=== PATIENT | female | born 1960 | race Caucasian/White ===

== ENCOUNTER 2018-03-04 14:44 | Emergency (ER) | payer MEDICARE, OTHER ==
[2018-03-04] MEDS: HYDROmorphONE 2 MG/ML SYG IM (15:39)
[2018-03-04 16:00] LABS: HEMATOCRIT 37.4 % (37.0-47.0); HEMOGLOBIN 12.2 g/dl (12.0-16.0); MEAN CORPUSCULAR HEMOGLOBIN 30.3 pg (29.0-33.0); MEAN CORPUSCULAR HGB CONC 32.6 g/dl (32.0-37.0); MEAN CORPUSCULAR VOLUME 92.8 fl (82.0-101.0); MEAN PLATELET VOLUME 9.1 fl (7.4-10.4); PLATELET COUNT 282 10^3/UL (140-415); RED BLOOD COUNT 4.03 10^6/ul (4.20-5.40); RED CELL DISTRIBUTION WIDTH 13.1 % (11.5-14.5)
[2018-03-04 16:00] LABS: WHITE BLOOD COUNT 6.2 10^3/ul (4.8-10.8)
[2018-03-04 16:04] LABS: ADD MAN DIFF? YES
[2018-03-04] MEDS: SOD CHLORIDE 0.9% 1,000 ML IV (16:08)
[2018-03-04 16:27] LABS: ANION GAP 7 (5-13); BLOOD UREA NITROGEN 10 mg/dl (7-20); CALCIUM 9.1 mg/dl (8.4-10.2); CARBON DIOXIDE 25 mmol/L (21-31); CHLORIDE 109 mmol/L (97-110); CREATININE 0.61 mg/dl (0.44-1.00); Estimated GFR > 60 mL/min (>60); GLUCOSE 82 mg/dl (70-220); POTASSIUM 4.1 mmol/L (3.5-5.1); SODIUM 141 mmol/L (135-144)
[2018-03-04 17:39] LABS: ANISOCYTOSIS 1+ (0-0); BASOPHILS % (M) 1 % (0-2); EOSINOPHILS % (M) 1 % (0-7); LYMPHOCYTES #M 3.4 10^3/ul (0.8-2.9); LYMPHOCYTES % (M) 56 % (15-51); MICROCYTOSIS 1+ (0-0); MONOCYTE #M 0.3 10^3/ul (0.3-0.9); MONOCYTES % (M) 5 % (0-11); PLATELET ESTIMATE NORMAL; POLYCHROMASIA 1+ (0-0); REACTIVE LYMPHOCYTES #M 0.2 10^3/ul (0.0-0.0); REACTIVE LYMPHOCYTES% (M) 4 % (0-0); SEGMENTED NEUTROPHILS (M) % 33 % (39-77); SMUDGE%M 3 % (0-0)
== END 2018-03-04 17:42 | disposition home or self-care (01) ==
LOC: E/R 14:44
DX: G89.18 Other acute postprocedural pain (principal); E86.0 Dehydration; G89.4 Chronic pain syndrome; F11.20 Opioid dependence, uncomplicated; R40.2142 Coma scale, eyes open, spontaneous, at arrival to emergency department; R40.2252 Coma scale, best verbal response, oriented, at arrival to emergency department; R40.2362 Coma scale, best motor response, obeys commands, at arrival to emergency department; J44.9 Chronic obstructive pulmonary disease, unspecified; F17.210 Nicotine dependence, cigarettes, uncomplicated; Z86.73 Personal history of transient ischemic attack (TIA), and cerebral infarction without residual deficits; Z85.038 Personal history of other malignant neoplasm of large intestine
CPT/HCPCS: 36415; 80048; 85025; 96372; 99284-25